=== PATIENT | male | born 1990 | race African-American/Black ===

== ENCOUNTER 2019-04-08 09:57 | Emergency (ER) | payer SELFPAY ==
--- NOTE | 2019-04-08 11:49 | ED Physician Documentation ---
PD HPI HEENT - Stated complaint Stated Complaint: MOUTH SWELLING - Chief complaint Chief Complaint: Wound - History obtained from History obtained from: Patient - History of Present Illness Timing - onset: How many days ago (few) Timing - duration: Days (few) Timing - details: Gradual onset, Still present Associated symptoms: Facial swelling (left upper tooth gumline and to left paranasal area). No: Fever, Congestion Similar symptoms before: Has not had sx before Review of Systems Constitutional: denies: Fever, Chills, Myalgias Throat: reports: Dental pain / toothache. denies: Sore throat, Swollen tonsils Respiratory: denies: Cough PD PAST MEDICAL HISTORY - Past Medical History Respiratory: None Endocrine/Autoimmune: None - Present Medications Home Medications: Ambulatory Orders Medication Instructions Recorded Confirmed Clindamycin HCl [Clindamycin 300MG 300 mg PO Q6H #28 capsule 04/08/19 CAP] Hydrocodone/Acetaminophen [[place] 1 each PO Q6H PRN #15 tablet 04/08/19 5-325 Tablet] Naproxen 500 mg PO BID #20 tablet 04/08/19 - Allergies Allergies/Adverse Reactions: Allergies Allergy/AdvReac Type Severity Reaction Status Date / Time No Known Drug Allergies Allergy Verified 04/08/19 10:20 PD ED PE NORMAL - Vitals Vital signs reviewed: Yes - General General: Alert and oriented X 3, No acute distress, Well developed/nourished - HEENT HEENT: No: Dentition benign (multiple caries and decay. Left upper canine tooth with tenderness to percussion and the gumline has swelling without fluctuance. There is firm swelling to left nasolabial fold and some edema of lower medial cheek on the left. Minimal redness and warmth. ) - Neck Neck: Supple, no meningeal sign, No adenopathy - Cardiac Cardiac: RRR, No murmur - Respiratory Respiratory: Clear bilaterally Results - Vitals Vitals: Vital Signs - 24 hr 04/08/19 04/08/19 10:12 12:44 Temperature 36.8 C 37 C Heart Rate 76 61 Respiratory 17 17 Rate Blood Pressure 112/67 136/74 H O2 Saturation 96 97 Oxygen O2 Source Room air PD MEDICAL DECISION MAKING - ED course Complexity details: considered differential, d/w patient Departure - Departure Disposition: 01 Home, Self Care Clinical Impression: Dental infection Condition: Stable Record reviewed to determine appropriate education?: Yes Instructions: ED Abscess Dental Prescriptions: Clindamycin HCl [Clindamycin 300MG CAP] 300 mg PO Q6H #28 capsule Hydrocodone/Acetaminophen [[place] 5-325 Tablet] 1 each PO Q6H PRN #15 tablet PRN Reason: Pain Naproxen 500 mg PO BID #20 tablet Comments: Stay well-hydrated. Clindamycin antibiotic as directed for a week. Naproxen anti-inflammatory twice daily for a week as directed. Add Tylenol or hydrocodone if needed for pain. Recheck if not improving well over the next 2 to 3 days. Subsequently follow-up with a dentist regarding more definitive care of the tooth. Forms: Activity restrictions Discharge Date/Time: 04/08/19 12:45
[2019-04-08] MEDS ORDERED: CLINDAMYCIN 150 MG CAPSULE PO STA (11:56)
[2019-04-08] MEDS ORDERED: HYDROcod/ACETAM 5/325 MG TABLET PO STA (11:56)
[2019-04-08] MEDS ORDERED: IBUPROFEN 600 MG TABLET PO STA (11:56)
[2019-04-08 12:45] VITALS: BP 136/74
== END 2019-04-08 12:45 | disposition home or self-care (01) ==
LOC: ED 09:57
DX: K04.7 Periapical abscess without sinus (principal); K02.9 Dental caries, unspecified
CPT/HCPCS: 99283; A9270